=== PATIENT | female | born 1970 | race Caucasian/White ===

== ENCOUNTER 2019-07-04 10:38 | Emergency (ER) | payer BC ==
[~2019-07-04] VITALS: Ht 152.4 cm; Wt 86.2 kg
[2019-07-04 10:42] VITALS: BP 155/83
[2019-07-04] MEDS ORDERED: XANAX1 MG PO (10:47)
[2019-07-04] MEDS ORDERED: KEFLEX500 M1 PO (11:03)
== END 2019-07-04 11:18 | disposition home or self-care (01) ==
LOC: M.ERS 10:38
DX: S70.262A Insect bite (nonvenomous), left hip, initial encounter (principal); L03.116 Cellulitis of left lower limb; W57.XXXA Bitten or stung by nonvenomous insect and other nonvenomous arthropods, initial encounter; Y93.89 Activity, other specified; Y92.89 Other specified places as the place of occurrence of the external cause; Y99.8 Other external cause status; Z88.0 Allergy status to penicillin

== ENCOUNTER 2020-02-16 10:18 | Emergency (ER) | payer BC ==
[~2020-02-16] VITALS: Ht 152.4 cm; Wt 81.7 kg
[~2020-02-16 10:18] MED LIST: KEFLEX500 M1 PO; XANAX1 MG PO
[2020-02-16 11:08] LABS: INFLUENZA A ANTIGEN Negative (Negative); INFLUENZA B ANTIGEN Negative (Negative)
[2020-02-16 11:12] LABS: ABSOLUTE BASOPHILS 0.1 thou/uL (0.0-0.2); ABSOLUTE EOSINOPHILS 0.1 thou/uL (0.0-0.7); ABSOLUTE LYMPHOCYTES 1.7 thou/uL (0.8-5.3); ABSOLUTE MONOCYTES 0.6 thou/uL (0.0-1.2); ABSOLUTE NEUTROPHILS 2.9 thou/uL (1.6-8.1); BASOPHILS 1.2 %; EOSINOPHILS 2.2 %; HEMATOCRIT 41.2 % (37.0-47.0); HEMOGLOBIN 14.1 gm/dL (12.0-15.0); LYMPHOCYTES 31.3 %; MCHC 34.2 g/dL (28.0-37.0); MCV 96.5 fL (80.0-100.0); MONOCYTES 10.7 %; MPV 7.7 fl. (7.2-11.1); NUCLEATED RBCS 0 /100WBC; PLATELET COUNT* 282 thou/uL (150-400); POLYS 54.6 %; RBC 4.27 mil/uL (4.20-5.00); RDW-CV 13.1 % (10.5-14.5); WBC 5.3 thou/uL (4.0-11.0)
[2020-02-16 11:21] LABS: CALCIUM 8.1 mg/dL (8.5-10.1); CREATININE 0.6 mg/dL (0.6-1.3); POTASSIUM 3.7 mmol/L (3.5-5.1)
[2020-02-16 11:26] LABS: ALBUMIN 3.1 g/dL (3.4-5.0); TOTAL BILIRUBIN 0.3 mg/dL (<0.1-1.0); TOTAL PROTEIN 7.2 g/dL (6.4-8.2)
[2020-02-16] MEDS ORDERED: ZPAK PO (12:32)
[2020-02-16] MEDS ORDERED: PROMETH-CODEIN 65 ML PO (12:32)
[2020-02-16] MEDS ORDERED: MEDROLDOSEPACK PO (12:32)
[2020-02-16] MEDS ORDERED: VENTOLIN HFA 1818 GM INH (12:32)
[2020-02-16 13:20] VITALS: BP 131/80
--- NOTE | 2020-02-16 15:38 | EKG ---
[place] [address] ELECTROCARDIOGRAM REPORT Name: MANOHAR LANGLEY Room: [facility]#: [id number] Admission: 02/16/20 Attend Phys: Discharge: 02/16/20 Date of : 68 Date of Service: 02/16/20 1231 Report #: [id number] THIS REPORT FOR: //name// [facility] ED Test Date: 2020-02-16 Test Time: 12:31:03 Pat Name: MANOHAR LANGLEY Department: Room: Gender: F Preventive Medicine Physician: ASHER : [id number] Requested By: Haley Reyes Order Number: [id number] MD: Garcia Jarrell Measurements Intervals [place] Rate: 81 P: 46 HI: 166 QRS: 63 QRSD: 91 T: 39 QT: 383 QTc: 445 Interpretive Statements Sinus rhythm No previous ECG available for comparison Electronically Signed On 02-16-2020 15:37:16 CDT by Garcia Jarrell [email or web address] <ELECTRONICALLY SIGNED> By: Garcia Jarrell MD, [facility] 02/16/20 1537 1231 1231 Garcia Jarrell MD, FACC /EPI
== END 2020-02-16 13:21 | disposition home or self-care (01) ==
LOC: M.ERS 10:18
PROVIDERS: Emergency Medicine; Nurse Practitioner Family
DX: J06.9 Acute upper respiratory infection, unspecified (principal); R42 Dizziness and giddiness; F17.210 Nicotine dependence, cigarettes, uncomplicated; Z88.0 Allergy status to penicillin; Z98.890 Other specified postprocedural states